=== PATIENT | female | born 1955 | race Caucasian/White ===

== ENCOUNTER 2018-02-12 15:14 | Inpatient (IN) | payer MEDICARE ==
[~2018-02-12] VITALS: Ht 162.6 cm; Wt 47.8 kg
[2018-02-12] MEDS ORDERED: rabies immune globulin/PF 150 unit/ml inj IMVAC STA (15:40)
[2018-02-12] MEDS ORDERED: rabies vaccine (PCEC)/PF 2.5 unit kit IMVAC ONE (15:40)
[2018-02-12] MEDS ORDERED: HYDROcodone/acetaminophen 10/325mg tab PO ONE (15:40)
[2018-02-12] MEDS ORDERED: ampicillin/sulbac 3gm/NS 100ml 100 ML IV ONE (15:52)
[2018-02-12 16:23] LABS: BASOPHILS % (AUTO) 0 % (0-1); EOSINOPHILS % (AUTO) 0.1 % (0-6); HEMATOCRIT 35.6 % (35.0-45.0); HEMOGLOBIN 12.2 g/dl (12.0-16.0); LYMPHOCYTES # (AUTO) 0.4 X10'3 (1.1-4.8); LYMPHOCYTES % (AUTO) 3.2 % (21-51); MEAN CORPUSCULAR HEMOGLOBIN 32.9 PG (27.0-31.0); MEAN CORPUSCULAR HGB CONC 34.3 % (33.0-36.5); MEAN CORPUSCULAR VOLUME 95.9 FL (78-98); MEAN PLATELET VOLUME 7.5 FL (7.4-10.4); MONOCYTES # (AUTO) 0.7 X10'3 (0-0.9); MONOCYTES % (AUTO) 4.9 % (2-12); NEUTROPHILS # (AUTO) 12.7 X10'3 (1.8-7.7); NEUTROPHILS % (AUTO) 91.8 % (42-75); PLATELET COUNT 225 X10'3 (140-440); RED BLOOD COUNT 3.71 X10'6 (4.20-5.60); RED CELL DISTRIBUTION WIDTH 12.6 % (11.5-14.5); WHITE BLOOD COUNT 13.9 X10'3 (4.5-11.0)
[2018-02-12 16:38] LABS: ALANINE AMINOTRANSFERASE 23 U/L (12-78); ALBUMIN 3.9 G/DL (3.4-5.0); ALKALINE PHOSPHATASE 111 IU/L (46-116); ANION GAP 11 (8-16); ASPARTATE AMINO TRANSFERASE 17 U/L (10-37); BILIRUBIN,TOTAL 0.9 MG/DL (0.1-1.0); BLOOD UREA NITROGEN 12 MG/DL (7-18); BUN/CREATININE RATIO 14.5 (6.6-38.0); CALCIUM 9.1 MG/DL (8.5-10.1); CHLORIDE 96 MMOL/L (99-107); CREATININE 0.83 MG/DL (0.40-0.90); GLUCOSE 131 MG/DL (70-104); SODIUM 132 MMOL/L (135-145); TOTAL CARBON DIOXIDE 25.1 MMOL/L (24-32); eGFR 70 ML/MIN
[2018-02-12] MEDS ORDERED: VENL75CA55 PO (17:07)
[2018-02-12] MEDS ORDERED: CLON-527 PO (17:07)
[2018-02-12] MEDS ORDERED: HYDR-565 PO (17:09)
[2018-02-12] MEDS ORDERED: FENT-90 TOP (17:09)
[2018-02-12 17:40] LABS: TOTAL CELLS COUNTED 100
[2018-02-12 17:42] LABS: PLATELET ESTIMATE NORMAL
[2018-02-12] MEDS ORDERED: morphine 5 MG/ML injection IV ONE (18:05)
[2018-02-12] MEDS ORDERED: ondansetron/PF 4mg/2ml inj IV ONE (18:05)
[2018-02-12] MEDS ORDERED: morphine 10mg/ml inj. IV ONE (18:15)
[2018-02-12] MEDS ORDERED: magnesium hydroxide 30ml (MOM) UD suspension PO PRN (19:35)
[2018-02-12] MEDS ORDERED: mag hydrox/Alum hydrox/simeth 30ml oral suspension PO PRN (19:35)
[2018-02-12] MEDS ORDERED: ondansetron/PF 4mg/2ml inj IV PRN (19:35)
[2018-02-12] MEDS ORDERED: acetaminophen 325mg tablet PO PRN ×2 (19:35)
[2018-02-12] MEDS ORDERED: HYDROcodone/acetaminophen 5mg/325mg tablet PO PRN (19:35)
[2018-02-12] MEDS ORDERED: FENTANYL 12 MCG TOP SCH (19:45)
[2018-02-12 20:10] VITALS: BP 159/72
[2018-02-12] MEDS: HYDROcodone/acetaminophen 10/325mg tab PO PRN (20:32)
[2018-02-12] MEDS: clonazePAM 1mg tablet PO SCH (20:32)
[2018-02-12] MEDS: normal saline 1000ml 1,000 ML IV SCH (20:33)
[2018-02-12] MEDS: temazepam 15mg capsule PO PRN (21:43)
[2018-02-12 22:00] VITALS: BP 103/58
[2018-02-13] MEDS: HYDROcodone/acetaminophen 10/325mg tab PO PRN ×4 (00:37→17:14)
[2018-02-13] MEDS: piperacillin/tazo 4.5gm/100ml 100 ML IV SCH ×3 (00:38→16:00)
[2018-02-13 00:54] LABS: URINE AMPHETAMINE SCREEN NEGATIVE (Neg); URINE BARBITUATE SCREEN NEGATIVE (Neg); URINE BENZODIAZEPINES SCREEN NEGATIVE (Neg); URINE CANNABINOID SCREEN POSITIVE (Neg); URINE COCAINE SCREEN NEGATIVE (Neg); URINE METHADONE SCREEN NEGATIVE (Neg); URINE OPIATE SCREEN POSITIVE (Neg); URINE PHENCYCLIDINE SCREEN NEGATIVE (Neg)
[2018-02-13 05:56] LABS: BASOPHILS % (AUTO) 0.2 % (0-1); EOSINOPHILS % (AUTO) 0 % (0-6); HEMATOCRIT 29.5 % (35.0-45.0); HEMOGLOBIN 9.9 g/dl (12.0-16.0); LYMPHOCYTES # (AUTO) 0.6 X10'3 (1.1-4.8); LYMPHOCYTES % (AUTO) 9.4 % (21-51); MEAN CORPUSCULAR HEMOGLOBIN 32.5 PG (27.0-31.0); MEAN CORPUSCULAR HGB CONC 33.7 % (33.0-36.5); MEAN CORPUSCULAR VOLUME 96.3 FL (78-98); MEAN PLATELET VOLUME 7.5 FL (7.4-10.4); MONOCYTES # (AUTO) 0.4 X10'3 (0-0.9); MONOCYTES % (AUTO) 7.3 % (2-12); NEUTROPHILS % (AUTO) 83.1 % (42-75); PLATELET COUNT 202 X10'3 (140-440); RED BLOOD COUNT 3.06 X10'6 (4.20-5.60)
[2018-02-13] MEDS: normal saline 1000ml 1,000 ML IV SCH ×2 (05:59→15:35)
[2018-02-13 06:00] VITALS: BP 108/67
[2018-02-13 06:17] LABS: ANION GAP 8 (8-16); BLOOD UREA NITROGEN 8 MG/DL (7-18); BUN/CREATININE RATIO 13.8 (6.6-38.0); CALCIUM 8.8 MG/DL (8.5-10.1); CHLORIDE 97 MMOL/L (99-107); CREATININE 0.58 MG/DL (0.40-0.90); GLUCOSE 94 MG/DL (70-104); POTASSIUM 3.6 MMOL/L (3.5-5.1); SODIUM 132 MMOL/L (135-145); TOTAL CARBON DIOXIDE 27.2 MMOL/L (24-32); eGFR > 90 ML/MIN
[2018-02-13] MEDS: venlafaxine XR 75mg capsule (Q24H) PO SCH (08:05)
[2018-02-13] MEDS: clonazePAM 1mg tablet PO SCH ×3 (08:05→19:58)
[2018-02-13] MEDS: enoxaparin 40mg/0.4ml syringe SUBCUT SCH (08:05)
[2018-02-13] MEDS ORDERED: fentaNYL 12 MCG/hour patch.TD72 TD SCH ×2 (09:00→19:00)
[2018-02-13 10:00] VITALS: BP 121/68
[2018-02-13 11:35] LABS: INR 1.1 INR; PROTHROMBIN TIME 10.9 SECONDS (9.0-12.0)
[2018-02-13 19:00] VITALS: BP 128/72
[2018-02-13] MEDS: temazepam 15mg capsule PO PRN (19:57)
[2018-02-13] MEDS: lactobacillus rhamnosus 10,000 MMU CELLS/CAPSULE PO SCH (19:57)
[2018-02-13 22:00] VITALS: BP 130/66
[2018-02-14] MEDS: piperacillin/tazo 4.5gm/100ml 100 ML IV SCH ×3 (00:41→16:32)
[2018-02-14] MEDS: HYDROcodone/acetaminophen 10/325mg tab PO PRN ×5 (00:42→20:03)
[2018-02-14] MEDS: normal saline 1000ml 1,000 ML IV SCH ×3 (03:37→19:21)
[2018-02-14 05:00] VITALS: BP 125/80
[2018-02-14 05:31] LABS: BASOPHILS % (AUTO) 0.2 % (0-1); EOSINOPHILS # (AUTO) 0.1 X10'3 (0-0.9); HEMATOCRIT 28.6 % (35.0-45.0); HEMOGLOBIN 9.7 g/dl (12.0-16.0); LYMPHOCYTES # (AUTO) 0.7 X10'3 (1.1-4.8); LYMPHOCYTES % (AUTO) 13.9 % (21-51); MEAN PLATELET VOLUME 7.7 FL (7.4-10.4); MONOCYTES # (AUTO) 0.6 X10'3 (0-0.9); MONOCYTES % (AUTO) 12.3 % (2-12); NEUTROPHILS # (AUTO) 3.6 X10'3 (1.8-7.7); NEUTROPHILS % (AUTO) 72.6 % (42-75); PLATELET COUNT 212 X10'3 (140-440); RED BLOOD COUNT 2.95 X10'6 (4.20-5.60); RED CELL DISTRIBUTION WIDTH 12.6 % (11.5-14.5); WHITE BLOOD COUNT 4.9 X10'3 (4.5-11.0)
[2018-02-14 05:47] LABS: ALBUMIN 2.7 G/DL (3.4-5.0); ANION GAP 6 (8-16); BLOOD UREA NITROGEN 5 MG/DL (7-18); BUN/CREATININE RATIO 8.6 (6.6-38.0); CALCIUM 8.7 MG/DL (8.5-10.1); CHLORIDE 103 MMOL/L (99-107); CREATININE 0.58 MG/DL (0.40-0.90); GLUCOSE 110 MG/DL (70-104); POTASSIUM 3.7 MMOL/L (3.5-5.1); SODIUM 137 MMOL/L (135-145); TOTAL CARBON DIOXIDE 27.6 MMOL/L (24-32); eGFR > 90 ML/MIN
[2018-02-14] MEDS: enoxaparin 40mg/0.4ml syringe SUBCUT SCH (08:21)
[2018-02-14] MEDS: venlafaxine XR 75mg capsule (Q24H) PO SCH (08:21)
[2018-02-14] MEDS: clonazePAM 1mg tablet PO SCH ×3 (08:21→19:58)
[2018-02-14] MEDS: lactobacillus rhamnosus 10,000 MMU CELLS/CAPSULE PO SCH ×2 (08:21→20:00)
[2018-02-14 10:00] VITALS: BP 132/66
[2018-02-14 18:00] VITALS: BP 149/80
[2018-02-14] MEDS: temazepam 15mg capsule PO PRN (19:58)
[2018-02-14 22:00] VITALS: BP 147/69
[2018-02-14] MEDS ORDERED: ibuprofen tablet 400 MG TABLET PO PRN (23:15)
[2018-02-14] MEDS: ibuprofen tablet 400 MG TABLET PO SCH (23:29)
[2018-02-15] MEDS: piperacillin/tazo 4.5gm/100ml 100 ML IV SCH ×2 (00:28→08:05)
[2018-02-15] MEDS: normal saline 1000ml 1,000 ML IV SCH (05:35)
[2018-02-15 06:11] VITALS: BP 119/64
[2018-02-15 06:12] LABS: BASOPHILS % (AUTO) 0.4 % (0-1); EOSINOPHILS # (AUTO) 0.1 X10'3 (0-0.9); EOSINOPHILS % (AUTO) 1.9 % (0-6); HEMATOCRIT 29.5 % (35.0-45.0); HEMOGLOBIN 10.1 g/dl (12.0-16.0); LYMPHOCYTES # (AUTO) 0.8 X10'3 (1.1-4.8); LYMPHOCYTES % (AUTO) 21.3 % (21-51); MEAN CORPUSCULAR HEMOGLOBIN 33.1 PG (27.0-31.0); MEAN CORPUSCULAR HGB CONC 34.1 % (33.0-36.5); MEAN CORPUSCULAR VOLUME 97.1 FL (78-98); MEAN PLATELET VOLUME 7.2 FL (7.4-10.4); MONOCYTES # (AUTO) 0.6 X10'3 (0-0.9); MONOCYTES % (AUTO) 16.3 % (2-12); NEUTROPHILS # (AUTO) 2.2 X10'3 (1.8-7.7); NEUTROPHILS % (AUTO) 60.1 % (42-75); PLATELET COUNT 263 X10'3 (140-440); RED BLOOD COUNT 3.03 X10'6 (4.20-5.60); RED CELL DISTRIBUTION WIDTH 13.1 % (11.5-14.5); WHITE BLOOD COUNT 3.7 X10'3 (4.5-11.0)
[2018-02-15 06:24] LABS: ALBUMIN 2.6 G/DL (3.4-5.0); ANION GAP 8 (8-16); BLOOD UREA NITROGEN 8 MG/DL (7-18); BUN/CREATININE RATIO 14.3 (6.6-38.0); CALCIUM 8.7 MG/DL (8.5-10.1); CHLORIDE 105 MMOL/L (99-107); CREATININE 0.56 MG/DL (0.40-0.90); GLUCOSE 94 MG/DL (70-104); POTASSIUM 3.5 MMOL/L (3.5-5.1); SODIUM 139 MMOL/L (135-145); eGFR > 90 ML/MIN
[2018-02-15] MEDS: rabies vaccine (PCEC)/PF 2.5 unit kit IMVAC ONE ×2 (08:00→08:05)
[2018-02-15] MEDS: venlafaxine XR 75mg capsule (Q24H) PO SCH (08:02)
[2018-02-15] MEDS: clonazePAM 1mg tablet PO SCH ×2 (08:02→13:20)
[2018-02-15] MEDS: lactobacillus rhamnosus 10,000 MMU CELLS/CAPSULE PO SCH (08:02)
[2018-02-15] MEDS: ibuprofen tablet 400 MG TABLET PO SCH (08:02)
[2018-02-15] MEDS: enoxaparin 40mg/0.4ml syringe SUBCUT SCH (08:05)
[2018-02-15] MEDS: HYDROcodone/acetaminophen 10/325mg tab PO PRN (08:12)
[2018-02-15 10:11] VITALS: BP 116/60
[2018-02-15] MEDS ORDERED: DOXY-200 PO (14:55)
== END 2018-02-15 15:44 | disposition home or self-care (01) | DRG 603 ==
LOC: ER 15:15 → ED HOLD 19:35 → ORTHO 4S 20:34
PROVIDERS: ADMIT Hospitalist; ATTEND Family Medicine
DX: L03.113 Cellulitis of right upper limb (principal); E87.1 Hypo-osmolality and hyponatremia; Z68.1 Body mass index [BMI] 19.9 or less, adult; F41.9 Anxiety disorder, unspecified; G89.29 Other chronic pain; S61.451A Open bite of right hand, initial encounter; D64.9 Anemia, unspecified; Z66 Do not resuscitate; F32.9 Major depressive disorder, single episode, unspecified; M19.90 Unspecified osteoarthritis, unspecified site; W55.01XA Bitten by cat, initial encounter; Z79.899 Other long term (current) drug therapy
CPT/HCPCS: 36415; 71045; 73090; 73120; 80048; 80053; 80305; 83605; 85025; 85610; 87040; 87070; 90375; 90471; 90675; 93005; 96365; 96372; 96375; 99285; A6213; J0295; J1650; J2270; J2405; J2543; J7030